=== PATIENT | male | born 1945 | race Caucasian/White ===

== ENCOUNTER → 2018-03-11 | Outpatient (CLI) | payer OTHER ==
[~2018-03-11] MED LIST: AMLODIPINE BESY10 MG; ANSAID100 MG; ASA81BEC PO; ATORVASTATIN CA40 MG; ATORVASTATIN CA40 MG PO; BACTRIM DS TAB1 EACH PO; CARVEDILOL12.5 MG PO; CITRATE OF MAG296 ML PO; CLEOCIN HCL150 MG PO; ELIQUIS5 MG PO; FLEXERIL; KEFLEX500 MG PO; METFORMIN HCL500 MG PO; MIRALAX17 GM; NEURONTIN 300300 M1 PO; NORCO 5-325 TA1 EACH; NORVASC10 MG PO; OSELB75 PO; PREDNISONE 10 M10 MG PO; PROTONIX40 M1 PO; SORINE 80 MG TA80 M1 PO
== END ==
LOC: M.ULTRA 12:53
DX: I65.23 Occlusion and stenosis of bilateral carotid arteries (principal)

== ENCOUNTER 2018-09-06 11:46 | Inpatient (IN) | payer OTHER ==
[~2018-09-06] VITALS: Ht 182.9 cm; Wt 128.8 kg
[2018-09-06 12:03] VITALS: BP 156/94
[2018-09-06 12:41] LABS: ABSOLUTE BASOPHILS 0.1 thou/uL (0.0-0.2); ABSOLUTE EOSINOPHILS 0.1 thou/uL (0.0-0.7); ABSOLUTE LYMPHOCYTES 2.5 thou/uL (0.8-5.3); ABSOLUTE MONOCYTES 0.5 thou/uL (0.0-1.2); ABSOLUTE NEUTROPHILS 4.4 thou/uL (1.6-8.1); BASOPHILS 0.9 %; HEMATOCRIT 41.6 % (42.0-52.0); HEMOGLOBIN 13.8 gm/dL (14.0-18.0); LYMPHOCYTES 32.8 %; MCH 28.7 pg (26.0-34.0); MCHC 33.2 g/dL (28.0-37.0); MCV 86.3 fL (80.0-100.0); MONOCYTES 6.4 %; MPV 8.3 fl. (7.2-11.1); NUCLEATED RBCS 0 /100WBC; PLATELET COUNT* 239 thou/uL (150-400); POLYS 58.9 %; RBC 4.82 mil/uL (4.50-6.00); RDW-CV 14.3 % (10.5-14.5); WBC 7.5 thou/uL (4.0-11.0)
[2018-09-06 12:49] LABS: ANION GAP 9 mmol/L (7-16); BUN 36 mg/dL (7-18); CALCIUM 11.2 mg/dL (8.5-10.1); CHLORIDE 105 mmol/L (98-107); CO2 25 mmol/L (21-32); CREATININE 1.3 mg/dL (0.6-1.3); GLUCOSE 158 mg/dL (70-99); POTASSIUM 4.6 mmol/L (3.5-5.1); PROTIME 10.6 Seconds (9.20-11.50); SODIUM 139 mmol/L (136-145)
[2018-09-06 12:56] LABS: ALBUMIN 3.7 g/dL (3.4-5.0); ALKALINE PHOSPHATASE 68 U/L (46-116); LIPASE 168 U/L (73-393); SGOT 27 U/L (15-37); SGPT 53 U/L (30-65); TOTAL BILIRUBIN 1.2 mg/dL (<0.1-1.0); TOTAL PROTEIN 6.7 g/dL (6.4-8.2); TROPONIN-I LEVEL <0.06 ng/mL (<0.06)
[2018-09-06 13:12] LABS: URINE BILIRUBIN NEGATIVE (Negative); URINE BLOOD NEGATIVE (Negative); URINE CLARITY CLEAR; URINE COLOR YELLOW; URINE GLUCOSE-RANDOM NEGATIVE (Negative); URINE KETONES NEGATIVE (Negative); URINE LEUKOCYTES-REFLEX NEGATIVE (Negative); URINE NITRITE-REFLEX NEGATIVE (Negative); URINE PROTEIN NEGATIVE (Negative); URINE SPECIFIC GRAVITY >= 1.030 (1.005-1.030); URINE UROBILINOGEN 0.2 E.U./dl (0.2-1.0)
[2018-09-06 14:20] VITALS: BP 140/74
[2018-09-06 15:22] LABS: ABSOLUTE BASOPHILS 0.1 thou/uL (0.0-0.2); ABSOLUTE EOSINOPHILS 0.1 thou/uL (0.0-0.7); ABSOLUTE LYMPHOCYTES 3.1 thou/uL (0.8-5.3); ABSOLUTE MONOCYTES 0.6 thou/uL (0.0-1.2); BASOPHILS 1.1 %; EOSINOPHILS 1.2 %; HEMATOCRIT 40.7 % (42.0-52.0); HEMOGLOBIN 13.5 gm/dL (14.0-18.0); LYMPHOCYTES 39.4 %; MCH 28.7 pg (26.0-34.0); MCHC 33.1 g/dL (28.0-37.0); MCV 86.7 fL (80.0-100.0); MONOCYTES 7.6 %; MPV 8.2 fl. (7.2-11.1); NUCLEATED RBCS 0 /100WBC; PLATELET COUNT* 241 thou/uL (150-400); POLYS 50.7 %; RBC 4.69 mil/uL (4.50-6.00); RDW-CV 14.1 % (10.5-14.5); WBC 7.9 thou/uL (4.0-11.0)
[2018-09-06 15:41] VITALS: BP 155/91
[2018-09-06 18:16] LABS: HEMOGLOBIN 12.5 gm/dL (14.0-18.0)
[2018-09-06 20:00] VITALS: BP 128/81
[2018-09-07] VITALS: BP 115/55
[2018-09-07 04:00] VITALS: BP 127/72
[2018-09-07 05:16] LABS: ABSOLUTE BASOPHILS 0.1 thou/uL (0.0-0.2); ABSOLUTE EOSINOPHILS 0.2 thou/uL (0.0-0.7); ABSOLUTE LYMPHOCYTES 2.3 thou/uL (0.8-5.3); ABSOLUTE MONOCYTES 0.5 thou/uL (0.0-1.2); BASOPHILS 1.1 %; EOSINOPHILS 2.6 %; HEMATOCRIT 33.6 % (42.0-52.0); HEMOGLOBIN 11.7 gm/dL (14.0-18.0); LYMPHOCYTES 38.2 %; MCH 30.1 pg (26.0-34.0); MCHC 34.9 g/dL (28.0-37.0); MCV 86.1 fL (80.0-100.0); MPV 8.8 fl. (7.2-11.1); NUCLEATED RBCS 0 /100WBC; PLATELET COUNT* 197 thou/uL (150-400); POLYS 50.1 %; RBC 3.91 mil/uL (4.50-6.00); RDW-CV 14.1 % (10.5-14.5)
[2018-09-07 05:42] LABS: ALBUMIN 3.1 g/dL (3.4-5.0); CREATININE 1.1 mg/dL (0.6-1.3); MAGNESIUM 1.8 mg/dL (1.8-2.4); TOTAL BILIRUBIN 1.5 mg/dL (<0.1-1.0); TOTAL PROTEIN 5.4 g/dL (6.4-8.2)
[2018-09-07 07:26] VITALS: BP 106/59
[2018-09-07 12:00] VITALS: BP 124/62
[2018-09-07 13:39] VITALS: BP 124/62
--- NOTE | 2018-09-07 18:04 | EKG ---
[place] [address] ELECTROCARDIOGRAM REPORT Name: SARABJITJESUS Room: [address] ADM IN .R.#: [id number] Admission: 09/06/18 Attend Phys: Linda Garcia MD Discharge: Date of : 45 Report #: [id number] THIS REPORT FOR: //name// [facility] ED Test Date: 2018-09-06 Test Time: 12:28:47 Pat Name: JESUS WHIPPLE Department: Room: [facility] Gender: M Health Science Specialist: : 1945 Requested By: Alon Jacobsen Order Number: [id number] MD: Danielito Chand Measurements Intervals [place] Rate: 77 P: MS: QRS: 30 QRSD: 114 T: 252 QT: 322 QTc: 365 Interpretive Statements Atrial fibrillation Incomplete right bundle branch block Inferior infarct, age indeterminate Lateral leads are also involved Compared to ECG 09/11/2017 00:03:45 Myocardial infarct finding now present T-wave abnormality no longer present Possible ischemia no longer present Electronically Signed On 09-07-2018 18:03:56 VENEER MATCHER by Danielito Chand [email or web address] <ELECTRONICALLY SIGNED> By: Danielito Chand MD, FACC 09/07/18 1803 1228 1228 Danielito Chand MD, FAC /EPI
[2018-09-07 19:35] VITALS: BP 129/68
[2018-09-08] VITALS: BP 134/67
[2018-09-08 04:00] VITALS: BP 140/78
[2018-09-08 05:12] LABS: HEMATOCRIT 32.8 % (42.0-52.0); HEMOGLOBIN 11.2 gm/dL (14.0-18.0); MCH 29.5 pg (26.0-34.0); MCHC 34.1 g/dL (28.0-37.0); MCV 86.5 fL (80.0-100.0); MPV 8.2 fl. (7.2-11.1); RBC 3.8 mil/uL (4.50-6.00); RDW-CV 14.1 % (10.5-14.5); WBC 9.6 thou/uL (4.0-11.0)
[2018-09-08 05:18] LABS: CALCIUM 10.3 mg/dL (8.5-10.1); CREATININE 1.2 mg/dL (0.6-1.3); MAGNESIUM 1.7 mg/dL (1.8-2.4)
[2018-09-08 08:00] VITALS: BP 111/58
[2018-09-08 12:00] VITALS: BP 121/74
[2018-09-08 15:52] LABS: ABSOLUTE BASOPHILS 0.1 thou/uL (0.0-0.2); ABSOLUTE EOSINOPHILS 0.1 thou/uL (0.0-0.7); ABSOLUTE LYMPHOCYTES 2.6 thou/uL (0.8-5.3); ABSOLUTE MONOCYTES 0.6 thou/uL (0.0-1.2); ABSOLUTE NEUTROPHILS 3.3 thou/uL (1.6-8.1); BASOPHILS 0.8 %; EOSINOPHILS 1.8 %; HEMATOCRIT 33.3 % (42.0-52.0); HEMOGLOBIN 11.1 gm/dL (14.0-18.0); LYMPHOCYTES 39.1 %; MCHC 33.4 g/dL (28.0-37.0); MCV 86.7 fL (80.0-100.0); MONOCYTES 8.5 %; MPV 8.4 fl. (7.2-11.1); NUCLEATED RBCS 0 /100WBC; PLATELET COUNT* 221 thou/uL (150-400); POLYS 49.8 %; RBC 3.85 mil/uL (4.50-6.00); RDW-CV 14.1 % (10.5-14.5); WBC 6.7 thou/uL (4.0-11.0)
[2018-09-08 20:00] VITALS: BP 111/89; BP 138/91
[2018-09-09 04:12] LABS: ABSOLUTE BASOPHILS 0.1 thou/uL (0.0-0.2); ABSOLUTE EOSINOPHILS 0.2 thou/uL (0.0-0.7); ABSOLUTE LYMPHOCYTES 2.5 thou/uL (0.8-5.3); ABSOLUTE MONOCYTES 0.5 thou/uL (0.0-1.2); ABSOLUTE NEUTROPHILS 3.1 thou/uL (1.6-8.1); EOSINOPHILS 2.5 %; HEMATOCRIT 34.9 % (42.0-52.0); HEMOGLOBIN 11.8 gm/dL (14.0-18.0); LYMPHOCYTES 40.2 %; MCH 29.4 pg (26.0-34.0); MCHC 33.8 g/dL (28.0-37.0); MCV 86.9 fL (80.0-100.0); MONOCYTES 7.9 %; MPV 8.7 fl. (7.2-11.1); NUCLEATED RBCS 0 /100WBC; PLATELET COUNT* 236 thou/uL (150-400); POLYS 48.4 %; RBC 4.01 mil/uL (4.50-6.00); RDW-CV 14.1 % (10.5-14.5); WBC 6.3 thou/uL (4.0-11.0)
[2018-09-09 04:16] LABS: CALCIUM 10.7 mg/dL (8.5-10.1); CREATININE 1.4 mg/dL (0.6-1.3); POTASSIUM 4.4 mmol/L (3.5-5.1)
[2018-09-09] MEDS ORDERED: PROTONIX40 M1 PO (07:11)
[2018-09-09 07:45] VITALS: BP 131/71
[2018-09-09 11:27] VITALS: BP 131/71
--- NOTE | 2018-09-09 12:23 | CON ---
[address] [address] CONSULTATION Name: JESUS WHIPPLE Mack Room: [address] IN .R.#: [id number] Admission: 09/06/18 Attend Phys: Linda Garcia MD Discharge: 09/09/18 Date of : 45 Report #: [id number] THIS REPORT FOR: //name// CC: Linda Rome DATE OF SERVICE: 09/06/2018 HISTORY OF PRESENT ILLNESS: This is a pleasant 72-year-old male with past medical history of hypertension, atrial fibrillation, coronary artery disease and hyperlipidemia who is presenting with black colored stools for the past 3-4 days. The patient reports that last week he had some nausea and dry heaving, but no real vomiting. About 4 days back, he began experiencing epigastric abdominal pain and cramps. Around the same time, patient also began noticing passing black colored soft poorly formed stools. The patient reports that the stools are black in color. Denies seeing any blood in them. Denies having any rectal pain while passing stools. He also denies similar episodes in the recent past. The patient does report being diagnosed with gastric ulcer about 20-25 years back. At that time, the patient was taking ibuprofen frequently for musculoskeletal pain. The patient denies taking any NSAIDs at this time. The patient also denies any dizziness, lightheadedness, presyncope or syncope. PAST MEDICAL HISTORY: As mentioned above, the patient has history of hypertension, diabetes, coronary artery disease, atrial fibrillation and is on chronic anticoagulation with Eliquis. PAST SURGICAL HISTORY: The patient had coronary artery bypass surgery. SOCIAL HISTORY: The patient denies smoking, alcohol or recreational drug use. FAMILY HISTORY: There is no family history of esophageal, gastric or colonic malignancy. REVIEW OF SYSTEMS: A comprehensive 10-point review of systems is negative except for what is mentioned in the HPI. PHYSICAL EXAMINATION: VITAL SIGNS: Temperature 36.2, pulse rate 84, respirations 16, blood pressure 156/94, pulse ox 98%. GENERAL: The patient is alert, awake, oriented x 3. HEENT: Pupils are equal, round, reactive to light and accommodation. Mucous membranes are moist. CARDIOVASCULAR: Irregularly irregular heart rhythm, otherwise no murmurs, [place] [address] CONSULTATION Name: JESUS WHIPPLE Room: [address]#: [id number] Admission: 09/06/18 Attend Phys: Linda Garcia MD Discharge: 09/09/18 Date of : 45 Report #: [id number] LUNGS: Clear to auscultation bilaterally. ABDOMEN: Soft. There is no distention, guarding or rigidity. EXTREMITIES: Warm, well perfused. There is 2+ pitting edema bilaterally. NEUROLOGIC: There is no focal neurological deficit. LABORATORY DATA: Hemoglobin 13.8, hematocrit 41.6, platelet count 239, WBC count 7.5. Sodium 139, potassium 4.6, chloride 105, bicarbonate 25, BUN 36, creatinine 1.3, total bilirubin 1.2, AST 27, ALT 53, alkaline phosphatase 68. INR 1. ASSESSMENT AND PLAN: This is a pleasant 72-year-old male with past medical history of hypertension, diabetes, atrial fibrillation, on chronic anticoagulation with Eliquis, presenting with black-colored stool for the last 3-4 days. The patient appears to be hemodynamically stable and therefore admission to telemetry bed is sufficient. I would continue b.i.d. proton pump inhibitor for now. We will keep the patient n.p.o. past midnight for esophagogastroduodenoscopy tomorrow. I would continue to hold the Eliquis until after the esophagogastroduodenoscopy. It is okay for the patient to have a liquid diet for dinner. <ELECTRONICALLY SIGNED> By: Ruben Gonsales MD 09/09/18 1223 1520 1811Ruben Gonsales MD /nt
--- NOTE | 2018-09-12 11:07 | PATH ---
[address] [address] PATHOLOGY RPT PROCEDURE Name: ZACH WHIPPLE Room: [address] IN M.R.#: [id number] Admission: 09/06/18 Date of : 45 Discharge: 09/09/18 Report #: [id number] Path Case #: [id number] [facility] Accession Number: [id number] . 01 Material submitted: . PART A: ANTRAL BIOPSY FOR H. PYLORI PART B: ESOPHAGEAL BIOPSY AT 38CM . 01 Clinical history: . None provided . 02 Diagnosis: A. Antral biopsy: - Mild nonspecific chronic antral gastritis with intestinal metaplasia, negative for Helicobacter pylori organisms and dysplasia. . B. 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 . (DB:[place]; 09/09/18) [facility]/09/09/2018 . 02 Comment: Special stain (A1): H. pylori immuno. . (DB:mm; 09/09/18) . 02 Electronically signed: . Carlos Springer MD, Pathologist NPI- [id number] . 01 Gross description: . A. The specimen is received in formalin, labeled "Zach Whipple, antral biopsy for H. pylori". Received is a segment of pale garcia soft tissue measuring 0.5 cm in maximum dimensions. The specimen is submitted entirely in cassette A1. . B. The specimen is received in formalin, labeled "Zach Whipple, esophageal biopsy at 38 cm". Received are two segments of pale garcia soft tissue measuring 0.3 and 0.5 cm in maximum dimensions. The specimen is submitted entirely in cassette B1. ([facility]; 09/08/2018) QAC/QAC . 02 Pathologist provided ICD-10: K29.50, K22.70 [place] [address] PATHOLOGY RPT PROCEDURE Name: ZACH WHIPPLE Room: [address] IN [facility]#: [id number] Admission: 09/06/18 Date of : 45 Discharge: 09/09/18 Report #: [id number] Path Case #: [id number] . 02 CPT . 265470, [id number], [id number] Specimen Comment: A courtesy copy of this report has been sent to Specimen Comment: [phone], , . Specimen Comment: Report sent to ,DR BRAUN / DR SMITH Specimen Comment: A duplicate report has been generated due to demographic updates. Performed at: [address], [place], [place] [id number] MD Onofre Ferreira MD Phone: [phone] Performed at: 02 [facility] [address], [place], [place] [id number] MD Carlos Springer MD Phone: [phone]
== END 2018-09-09 11:45 | disposition home or self-care (01) | DRG 813 ==
LOC: M.ERS 11:46 → M.2W 13:29 → M.TBA-ER 13:29 → M.ORTHSURG 13:29 → M.2W 20:22 → M.3W 09-08 16:48
PROVIDERS: Emergency Medicine; Internal Medicine Gastroenterology; ADMIT Internal Medicine
PROC: 0D568ZZ Destruction of Stomach, Via Natural or Artificial Opening Endoscopic (ICD-10-PCS; principal; 2018-09-07)
PROC: 0DB68ZX Excision of Stomach, Via Natural or Artificial Opening Endoscopic, Diagnostic (ICD-10-PCS; principal; 2018-09-07)
PROC: 0DB58ZX Excision of Esophagus, Via Natural or Artificial Opening Endoscopic, Diagnostic (ICD-10-PCS; principal; 2018-09-07)
DX: D68.32 Hemorrhagic disorder due to extrinsic circulating anticoagulants (principal); K22.11 Ulcer of esophagus with bleeding; K25.4 Chronic or unspecified gastric ulcer with hemorrhage; K31.1 Adult hypertrophic pyloric stenosis; K31.5 Obstruction of duodenum; D62 Acute posthemorrhagic anemia; M19.90 Unspecified osteoarthritis, unspecified site; I10 Essential (primary) hypertension; E11.9 Type 2 diabetes mellitus without complications; I48.91 Unspecified atrial fibrillation; I25.10 Atherosclerotic heart disease of native coronary artery without angina pectoris; E78.5 Hyperlipidemia, unspecified; K44.9 Diaphragmatic hernia without obstruction or gangrene; Z79.899 Other long term (current) drug therapy; Z88.6 Allergy status to analgesic agent; Z88.1 Allergy status to other antibiotic agents; Z95.1 Presence of aortocoronary bypass graft; Z79.01 Long term (current) use of anticoagulants

== ENCOUNTER → 2018-10-04 | Outpatient (CLI) | payer OTHER ==
[2018-10-04 14:36] LABS: HEMOGLOBIN 13.4 gm/dL (14.0-18.0); MCH 27.3 pg (26.0-34.0); MCHC 32.7 g/dL (28.0-37.0); MCV 83.7 fL (80.0-100.0); MPV 7.9 fl. (7.2-11.1); NUCLEATED RBCS 0 /100WBC; PLATELET COUNT* 278 thou/uL (150-400); RBC 4.89 mil/uL (4.50-6.00); RDW-CV 14.6 % (10.5-14.5); WBC 5.9 thou/uL (4.0-11.0)
[2018-10-04 14:45] LABS: ALBUMIN 3.9 g/dL (3.4-5.0); CALCIUM 10.9 mg/dL (8.5-10.1); CREATININE 1.3 mg/dL (0.6-1.3); POTASSIUM 4.2 mmol/L (3.5-5.1); TOTAL BILIRUBIN 1.1 mg/dL (<0.1-1.0); TOTAL PROTEIN 7.3 g/dL (6.4-8.2)
[2018-10-04 16:07] LABS: ESR (SEDRATE) 5 mm/hr (0-20)
[2018-10-04 16:47] LABS: ABSOLUTE EOSINOPHILS 0.6 thou/uL (0.0-0.7); ABSOLUTE LYMPHOCYTES 2.8 thou/uL (0.8-5.3); ABSOLUTE MONOCYTES 0.3 thou/uL (0.0-1.2); ABSOLUTE NEUTROPHILS 2.2 thou/uL (1.6-8.1); ATYPICAL LYMPHS 8 %
[2018-10-04 16:48] LABS: PLATELET ESTIMATE ADEQUATE
== END ==
LOC: M.LAB 14:14
PROVIDERS: Internal Medicine Gastroenterology
DX: D50.0 Iron deficiency anemia secondary to blood loss (chronic) (principal); K25.9 Gastric ulcer, unspecified as acute or chronic, without hemorrhage or perforation

== ENCOUNTER → 2018-11-14 | Outpatient (CLI) | payer OTHER ==
[2018-11-14 23:07] LABS: GLYCOHEMOGLOBIN (HGB A1C) 7.4 % (4.8-5.6)
== END ==
LOC: M.LAB 08:09
PROVIDERS: Nurse Practitioner Family
DX: Z00.01 Encounter for general adult medical examination with abnormal findings (principal); E11.22 Type 2 diabetes mellitus with diabetic chronic kidney disease; I12.9 Hypertensive chronic kidney disease with stage 1 through stage 4 chronic kidney disease, or unspecified chronic kidney disease; N18.3 Chronic kidney disease, stage 3 (moderate); E11.65 Type 2 diabetes mellitus with hyperglycemia; E78.49 Other hyperlipidemia; J44.9 Chronic obstructive pulmonary disease, unspecified; I48.2 Chronic atrial fibrillation; D50.0 Iron deficiency anemia secondary to blood loss (chronic); K25.9 Gastric ulcer, unspecified as acute or chronic, without hemorrhage or perforation

== ENCOUNTER 2019-05-20 09:44 | Emergency (ER) | payer OTHER ==
[~2019-05-20] VITALS: Ht 182.9 cm; Wt 129.3 kg
[2019-05-20] MEDS ORDERED: PROBIOTIC1 EAC1 PO (09:51)
[2019-05-20 10:14] LABS: ABSOLUTE BASOPHILS 0.1 thou/uL (0.0-0.2); ABSOLUTE EOSINOPHILS 0.1 thou/uL (0.0-0.7); ABSOLUTE LYMPHOCYTES 1.7 thou/uL (0.8-5.3); ABSOLUTE MONOCYTES 0.8 thou/uL (0.0-1.2); ABSOLUTE NEUTROPHILS 6.9 thou/uL (1.6-8.1); BASOPHILS 0.8 %; HEMATOCRIT 43.9 % (42.0-52.0); HEMOGLOBIN 14.1 gm/dL (14.0-18.0); MCH 24.2 pg (26.0-34.0); MCHC 32.1 g/dL (28.0-37.0); MCV 75.2 fL (80.0-100.0); MONOCYTES 7.9 %; MPV 8.2 fl. (7.2-11.1); NUCLEATED RBCS 0 /100WBC; PLATELET COUNT* 265 thou/uL (150-400); POLYS 72.3 %; RBC 5.84 mil/uL (4.50-6.00); RDW-CV 17.7 % (10.5-14.5); WBC 9.5 thou/uL (4.0-11.0)
[2019-05-20 10:14] LABS: URINE BILIRUBIN NEGATIVE (Negative); URINE BLOOD 3+ (Negative); URINE CLARITY CLEAR; URINE COLOR YELLOW; URINE GLUCOSE-RANDOM 2+ (Negative); URINE KETONES NEGATIVE (Negative); URINE LEUKOCYTES-REFLEX NEGATIVE (Negative); URINE NITRITE-REFLEX NEGATIVE (Negative); URINE PROTEIN TRACE (Negative); URINE UROBILINOGEN 0.2 E.U./dl (0.2-1.0)
[2019-05-20 10:22] LABS: SQUAMOUS 0-3 Few /LPF (0-3); URINE WBC-REFLEX 0-5 Rare /HPF (0-5)
[2019-05-20 10:23] LABS: BACTERIA-REFLEX 1-9 Few /HPF (None Seen); CASTS None Seen /LPF (None Seen); CRYSTALS None Seen /LPF (None Seen); MUCUS None Seen strn/LPF (None Seen)
[2019-05-20 10:28] LABS: ALBUMIN 4.2 g/dL (3.4-5.0); CALCIUM 11.2 mg/dL (8.5-10.1); CREATININE 1.5 mg/dL (0.6-1.3); TOTAL BILIRUBIN 1.7 mg/dL (<0.1-1.0); TOTAL PROTEIN 7.7 g/dL (6.4-8.2)
[2019-05-20 10:31] LABS: POTASSIUM 5.3 mmol/L (3.5-5.1)
[2019-05-20] MEDS ORDERED: FLOMAX0.4 MG PO (11:34)
[2019-05-20] MEDS ORDERED: ZOFRAN ODT4 MG SUBLING (11:34)
[2019-05-20] MEDS ORDERED: CIPROFLOXACIN500 M1 PO (11:34)
[2019-05-20] MEDS ORDERED: PERCOCET 5-3251 EACH PO (11:34)
[2019-05-20 11:55] VITALS: BP 165/90
== END 2019-05-20 11:57 | disposition home or self-care (01) ==
LOC: M.ERS 09:44
PROVIDERS: Family Medicine
DX: N20.0 Calculus of kidney (principal); R11.2 Nausea with vomiting, unspecified; I48.91 Unspecified atrial fibrillation; E11.9 Type 2 diabetes mellitus without complications; I10 Essential (primary) hypertension; M19.90 Unspecified osteoarthritis, unspecified site; Z95.810 Presence of automatic (implantable) cardiac defibrillator; Z88.0 Allergy status to penicillin; Z88.6 Allergy status to analgesic agent

== ENCOUNTER → 2019-11-23 | Outpatient (CLI) | payer OTHER ==
[~2019-11-23] MED LIST changes: +CIPROFLOXACIN500 M1 PO; +FLOMAX0.4 MG PO; +PERCOCET 5-3251 EACH PO; +PROBIOTIC1 EAC1 PO; +ZOFRAN ODT4 MG SUBLING
[2019-11-23 11:02] LABS: HEMATOCRIT 42.2 % (42.0-52.0); HEMOGLOBIN 13.7 gm/dL (14.0-18.0); MCH 25.1 pg (26.0-34.0); MCHC 32.5 g/dL (28.0-37.0); MCV 77.2 fL (80.0-100.0); MPV 8.6 fl. (7.2-11.1); RBC 5.47 mil/uL (4.50-6.00); RDW-CV 17.4 % (10.5-14.5); WBC 4.8 thou/uL (4.0-11.0)
[2019-11-23 11:15] LABS: APTT 25.7 Seconds (25.0-31.3); PROTIME 10.7 Seconds (9.20-11.50)
[2019-11-23 11:21] LABS: CALCIUM 11.3 mg/dL (8.5-10.1); CREATININE 1.3 mg/dL (0.6-1.3); POTASSIUM 4.8 mmol/L (3.5-5.1)
--- NOTE | 2019-11-23 14:23 | EKG ---
[place] [address] ELECTROCARDIOGRAM REPORT Name: JESUS WHIPPLE Room: [facility]#: [id number] Admission: 11/23/19 Attend Phys: Danielito Chand, Discharge: Date of : 45 Date of Service: 11/23/19 1059 Report #: [id number] THIS REPORT FOR: //name// [facility] Test Date: 2019-11-23 Test Time: 10:59:34 Pat Name: JESUS WHIPPLE Department: Room: Gender: Manager Engine: : 1945 Requested By: Danielito Chand Order Number: [id number] MD: Vincent Carlos Measurements Intervals [place] Rate: 53 P: MA: QRS: 59 QRSD: 112 T: -41 QT: 435 QTc: 409 Interpretive Statements Atrial fibrillation with ventricular escape beats Borderline intraventricular conduction delay RSR' in V1 or V2, right VCD or RVH Nonspecific T abnormalities, lateral leads Baseline wander in lead(s) I,aVL Compared to ECG 09/06/2018 12:28:47 ventricular escape beats noted Electronically Signed On 11-23-2019 14:22:30 INTERVENTION SPECIALIST by Vincent Carlos [email or web address] <ELECTRONICALLY SIGNED> By: Vincent Carlos MD, [facility] 11/23/19 1422 1059 1059 Vincent Carlos MD, [facility] /EPI
--- NOTE | 2019-12-19 13:54 | CARD ---
[address] [address] CARDIAC CATH REPORT Name: JESUS WHIPPLE Room: [facility]#: [id number] Admission: 11/23/19 Attend Phys: Danielito Chand MD Discharge: Date of : 45 Report #: [id number] THIS REPORT FOR: //name// cc: Onofre Rome Russell J. DO ~ ADDENDUM APPROVED REPORT Study performed: 11/23/2019 13:10:25 Patient Status: Out-Patient Room #: Event Personnel: Danielito Chand Medicare Contact Specialist, Damaris Garcia RN RN, Rosendo Mercado RTR Scrub, Mariam Lilly RTR Monitor Exam: dual-chamber ICD generator at elective replacement. The patient is a 73 year-old male with a history of . Conscious Sedation Start time: 13:21 End Time: 13:35 Fentanyl 25 mcg Versed 1 mg Implanted Devices: [employer]otronik Ilivia DRT DF4 pro-MRI, model #778488, serial #[id number] dual-chamber ICD generator. Explanted Devices: Medtronic Protecta, serial number [id number] dual-chamber ICD generator. Procedure The patient underwent informed consent. We discussed the details of the procedure including the risks, which include, but not limited to bleeding, infection, vascular damage, cardiac perforation, and pneumothorax. He understood these risks and was willing to proceed. As such, was brought to the EP/Cardiac Catheterization laboratory in a fasting and sedated state and prepped and draped in a The patient underwent conscious sedation, with no related complications. The patient was brought to the EP/Cardiac Catheterization laboratory and the left chest and shoulder were prepped and draped in a sterile manner. After informed consent was obtained the area of the left chest was prepped and draped in sterile condition. Local anesthesia was achieved with 1% lidocaine. Next after an initial incision was made over the device pocket the existing generator was explanted using electrocautery and blunt dissection. The device was disconnected from the pacing ICD ventricular lead and the pacing atrial lead. Thresholds were checked and deemed to be [place] [address] CARDIAC CATH REPORT Name: JESUS WHIPPLE Room: [facility]#: [id number] Admission: 11/23/19 Attend Phys: Danielito Chand MD Discharge: Date of : 45 Report #: [id number] pocket was flushed with antibiotic solution. Next the new dual-chamber ICD generator was attached to the atrial and ventricular leads. The device and redundant lead were then replaced within the device pocket. The deep tissues were closed using interrupted stitches of 2-0 Vicryl. The skin incision was then closed with a single subcuticular stitch of 4-0 Vicryl. Several Steri-Strips were placed across the incision. A sterile Telfa dressing was then covered with a Tegaderm. The patient tolerated the procedure well without complication. Electrode Parameters R Wave: 12.0 mV Ventricular Threshold: 0.7 V at 0.40 ms Ventricular Resistance: 560 ohms Generator Change The generator change was then secured using 0 silk sutures. The subcutaneous pocket was irrigated with vancomycin antibiotic solution.The lead was attached to the appropriate receptacle on the new pulse generator and setscrews firmly tightened to insure adequate contact and stability. The lead and pulse generator were placed into the subcutaneous pocket. Sharp and sponge counts were confirmed to be correct. At this time the pocket was closed subcutaneously with a 2.0 Vicryl and the skin was closed with a 4.0 Vicryl. The operative site was dressed in sterile fashion with Benzoin spray, steri strips, and stratabsorb and the patient was transferred to the floor in stable condition. Complications The patient tolerated the procedure well and there were no complications associated with the procedure. Findings Specimens Removed: No Estimated Blood Loss: 5 ml Conclusion 1. Dual-chamber ICD pacing generator at elective replacement. 2. Successful replacement of a dual-chamber ICD pacing [place] [address] CARDIAC CATH REPORT Name: JESUS WHIPPLE [id number] Admission: 11/23/19 Attend Phys: Danielito Chand MD Discharge: Date of : 45 Report #: [id number] 1. Follow-up site check in one week. 2. Follow-up with device check in one to 2 months. <ELECTRONICALLY SIGNED> By: Danielito Chand MD, FACC 12/19/19 135 51 135Michaezack Chand MD, FACC /INF
== END | disposition home or self-care (01) ==
LOC: M.CL 10:07
PROVIDERS: Internal Medicine Cardiovascular Disease
DX: Z45.02 Encounter for adjustment and management of automatic implantable cardiac defibrillator (principal); I10 Essential (primary) hypertension; E78.00 Pure hypercholesterolemia, unspecified; E11.9 Type 2 diabetes mellitus without complications; I48.91 Unspecified atrial fibrillation; M19.90 Unspecified osteoarthritis, unspecified site; Z98.890 Other specified postprocedural states; Z79.899 Other long term (current) drug therapy; Z79.01 Long term (current) use of anticoagulants; Z95.1 Presence of aortocoronary bypass graft; Z88.0 Allergy status to penicillin; Z88.8 Allergy status to other drugs, medicaments and biological substances